=== PATIENT | female | born 1945 | race Caucasian/White ===

== ENCOUNTER → 2017-06-12 | Outpatient (CLI) | payer OTHER | LOC: BMCIMAGING 14:45 | PROVIDERS: ATTEND Obstetrics & Gynecology | DX: Z12.31 Encounter for screening mammogram for malignant neoplasm of breast (principal) | CPT/HCPCS: G0202 ==

== ENCOUNTER → 2017-08-30 | Outpatient (CLI) | payer OTHER | LOC: FIMAGING 14:37 | PROVIDERS: ATTEND Family Medicine | DX: M71.21 Synovial cyst of popliteal space [Baker], right knee (principal) ==

== ENCOUNTER → 2017-08-30 | Outpatient (CLI) | payer OTHER | LOC: FIMAGING 14:43 | PROVIDERS: ATTEND Family Medicine | DX: M71.21 Synovial cyst of popliteal space [Baker], right knee (principal) ==

== ENCOUNTER → 2017-09-18 | Outpatient (CLI) | payer OTHER | LOC: FIMAGING 12:24 → EDSTATUS 12:25 | PROVIDERS: ATTEND Family Medicine | DX: M51.34 Other intervertebral disc degeneration, thoracic region (principal); M46.96 Unspecified inflammatory spondylopathy, lumbar region; M46.97 Unspecified inflammatory spondylopathy, lumbosacral region; M54.2 Cervicalgia ==

== ENCOUNTER → 2018-01-16 | Outpatient (CLI) | payer OTHER ==
[~2018-01-16] MED LIST: GADOBUTROL 10 ML VIAL IVP ONE; GLUCAGON HCL 0.3 MG in SYRINGE 0.3 ML IVP ONE
== END ==
LOC: FIMAGING 11:45
PROVIDERS: ATTEND Physician Assistant
DX: K50.00 Crohn's disease of small intestine without complications (principal); K76.9 Liver disease, unspecified; K80.20 Calculus of gallbladder without cholecystitis without obstruction
CPT/HCPCS: 72196; 74182; A9585; J1610

== ENCOUNTER → 2018-01-22 | Outpatient (CLI) | payer OTHER | DX: M23.321 Other meniscus derangements, posterior horn of medial meniscus, right knee (principal); M76.31 Iliotibial band syndrome, right leg; M71.21 Synovial cyst of popliteal space [Baker], right knee ==

== ENCOUNTER → 2018-07-10 | Outpatient (CLI) | payer OTHER | LOC: BMCIMAGING 09:08 | PROVIDERS: ATTEND Obstetrics & Gynecology | DX: Z12.31 Encounter for screening mammogram for malignant neoplasm of breast (principal) ==